=== PATIENT | female | born 1950 | race Caucasian/White ===

== ENCOUNTER → 2016-12-14 | Outpatient (CLI) | payer OTHER ==
[~2016-12-14] VITALS: Ht 165.1 cm; Wt 104.0 kg
[~2016-12-14] MED LIST: AGGR20025 PO; ASPI325T PO; CHLORHEXIDINE GLUCONATE 2 % 1 PACK (2 CLOTHS) TOPICAL PRN; COUM5TAB PO; COZA100T PO; GLYB1TAB51 PO; GLYB5TAB3 PO; INSULIN HUMAN REGULAR 1,000 UNITS/10 ML VIAL SQ PRN; LACTATED RINGER'S 1000 ML IV PRN; LANTUSP SQ; LORA10TA7 PO; LOSA100T PO; METOPROLOL TARTRATE 25 MG TAB PO PRN; NORV2.5T11 PO; POVIDONE IODINE 5% (ANTISEPSIS KIT) 4 APPLICATIONS EACH NARE PRN; PROPOFOL 200 MG/20 ML AMP IV ONE; SERT-129 PO; SIMV20TA PO; SODIUM CHLORID 0.9% 500 ML IV PRN; TYLE500T PO; VICTOZA INJ; VITA250L SL; ZOCO20TA PO; [UNRECOGNIZED DRUG - CODE] SL
[2016-12-14 09:38] VITALS: BP 160/78; PULSE 71; RESP 18; TEMP 98.1; O2SAT 96
--- NOTE | 2016-12-14 11:18 | EKG ---
Date Performed: 12/14/2016 Time Performed: 10:14:24 PTAGE: 66 years EKG: Sinus rhythm LOW QRS VOLTAGE IN PRECORDIAL LEADS NONSPECIFIC T-WAVE ABNORMALITY BORDERLINE ECG PREVIOUS TRACING : 11/26/2010 08.18 No significant change from previous tracing noted DOCTOR: Luis Mcknight Interpretating Date/Time 12/14/2016 11:17:57
[2016-12-14 11:34] VITALS: TEMP 98
--- NOTE | 2016-12-14 11:45 | GIPROC ---
[facility] [address] [facility]. [facility], [address] COLONOSCOPY PROCEDURE REPORT EXAM DATE: 12/14/2016 PATIENT NAME: Carolann Ruiz MR #: [id number] BIRTHDATE: 1950 ENDOSCOPIST: Royal Viera MD ORDER #: [id number] EMPLOYMENT ASSISTANT: George Guo and Steph Manning STATUS: outpatient INDICATIONS: The patient is a 66 yr old female here for a colonoscopy due to follow up of adenomatous colonic polyp(s) PROCEDURE PERFORMED: Colonoscopy with ablation Colonoscopy with biopsy MEDICATIONS: None and Per Anesthesia. PREP QUALITY: excellent ESTIMATED BLOOD LOSS: None CONSENT: The patient understands the risks and benefits of the procedure and understands that these risks include, but are not limited to: sedation, allergic reaction, infection, perforation and/or bleeding. Alternative means of evaluation and treatment include, among others: physical exam, x-rays, and/or surgical intervention. The patient elects to proceed with this endoscopic procedure. medical equipment was checked for proper function. Hand hygiene and appropriate measures for infection prevention was taken. After the risks, benefits and alternatives of the procedure were thoroughly explained, Informed consent was verified, confirmed and timeout was successfully executed by the treatment team. A digital exam revealed no abnormalities of the rectum The Pentax [id number] and [id number] endoscope was introduced through the anus and advanced to the cecum, which was identified by both the appendix and ileocecal valve. The instrument was then slowly withdrawn as the colon was fully examined. COLON FINDINGS: A flat polyp measuring 7 mm in size was found at the ileocecal valve. A biopsy was performed using cold forceps. Fulguration of polyps was performed using Argon plasma circumferential. There was moderate diverticulosis noted in the sigmoid colon with associated colonic narrowing and angulation. Retroflexion was not performed The scope was then completely withdrawn from the patient and the procedure terminated. PROCEDURE WITHDRAWAL TIME:17minutes ADVERSE EVENTS: There were no complications. IMPRESSIONS: 1. A flat polyp was found at the ileocecal valve; biopsy was performed using cold forceps; Fulguration of polyps was performed using Argon plasma circumferential 2. There was moderate diverticulosis noted in the sigmoid colon 3. Retroflexion was not performed 4. Revealed no abnormalities of the rectum RECOMMENDATIONS: Await biopsy results. Biopsy results will not be ready for 7-10 days. If you don't hear from us in two weeks, call our office for results. RECALL: Return 1 year Colonoscopy Discuss surgical options especially if polyp still present on follow up exam. Royal Viera MD eSigned: Royal Viera MD 12/14/2016 11:44 AM cc: Godwin Drummond M.D. PATIENT NAME: Carolann Ruiz MR#: [id number]
[2016-12-14 11:54] VITALS: BP 162/78; PULSE 65; RESP 18; O2SAT 98
== END ==
LOC: HEND 08:54
PROVIDERS: ATTEND Internal Medicine Gastroenterology
DX: Z12.11 Encounter for screening for malignant neoplasm of colon (principal); Z86.010 Personal history of colon polyps; D12.0 Benign neoplasm of cecum; K57.90 Diverticulosis of intestine, part unspecified, without perforation or abscess without bleeding; R94.31 Abnormal electrocardiogram [ECG] [EKG]
CPT/HCPCS: 88305; 93005